=== PATIENT | female | born 1985 | race African-American/Black ===

== ENCOUNTER 2017-05-30 00:45 | Emergency (ER) | payer MEDICAID, OTHER ==
[~2017-05-30] VITALS: Ht 165.1 cm; Wt 68.0 kg
[2017-05-30] MEDS ORDERED: ACETAMINOPHEN 325 MG TABLET PO ONE (02:15)
[2017-05-30] MEDS ORDERED: ACETAMINOPHEN 325 MG TABLET ONE (02:21)
--- NOTE | 2017-05-30 03:26 | NUR ---
Patient discharged to home in stable conditon. Written and verbal after care instructions given. Patient verbalizes understanding of instructions.
== END 2017-05-30 03:28 | disposition home or self-care (01) ==
LOC: ER 00:52
DX: M79.631 Pain in right forearm (principal)
CPT/HCPCS: 73090; 99284; A4663